=== PATIENT | female | born 1965 | race Caucasian/White ===

== ENCOUNTER → 2024-03-10 10:34 | Outpatient (CLI) | payer BC, SELFPAY ==
--- NOTE | 2024-03-10 10:37 | DI.MRI.S_ITS ---
PROCEDURE: MR HEAD/BRAIN WO CON INDICATIONS: SUDDEN VISUAL LOSS TECHNIQUE: Noncontrast axial T1 spin echo, axial T2 fast spin echo, sagittal and axial FLAIR, coronal T2 fast spin echo, axial gradient echo, axial diffusion and ADC through the brain. COMPARISON: None. FINDINGS: Image quality: Excellent. CSF Spaces: Basal cisterns are patent. No extra-axial fluid collections. Ventricles are normal in size and shape. Brain: No intracranial masses or hemorrhage. Kelly/white matter interface is normal. Brainstem appears normal. Diffusion-weighted images demonstrate no acute infarct. No chronic ischemic insults. Normal intravascular flow voids are present. Scattered foci of periventricular and subcortical white matter hyperintensities are present. Skull and face: Calvarium has normal marrow signal. Orbits appear normal. Sinuses: Sinuses and mastoids are clear. IMPRESSION: Nonspecific scattered hyperintensities. This is suspected to represent early changes of chronic microvascular ischemia. Other etiology such as vasculitis, demyelinating disease or sequela of infection/inflammation or migraine cannot be excluded. Dictated by: Holley Castillo M.D. on 03/10/2024 at 16:59 Approved by: Holley Castillo M.D. on 03/10/2024 at 17:00
--- NOTE | 2024-03-10 10:38 | DI.US.S_ITS ---
PROCEDURE: US CAROTID DOPPLER BI INDICATIONS: SUDDEN VISUAL LOSS TECHNIQUE: Color and pulse Doppler interrogation was performed of both carotid systems, with image documentation and velocity measurements. COMPARISON: None. FINDINGS: Stenosis calculations are based on SRU (S[employer] in [employer]) criteria. Right side: Brachial blood pressure: 126/88 mm Hg. Common carotid artery peak systolic velocity: 35 cm/sec. Internal carotid artery peak systolic velocity: 33 cm/sec. Internal carotid artery end diastolic velocity: 13 cm/sec. External carotid artery peak systolic velocity: 43 cm/sec. ICA/CCA peak systolic ratio: 0.9 . Kelly scale imaging description: Mild plaque Percent internal carotid artery stenosis: Less than 50% . Vertebral artery: Flow direction is antegrade. Left side: Brachial blood pressure: 126/88 mm Hg. Common carotid artery peak systolic velocity: 41 cm/sec. Internal carotid artery peak systolic velocity: 49 cm/sec. Internal carotid artery end diastolic velocity: 20 cm/sec. External carotid artery peak systolic velocity: 55 cm/sec. ICA/CCA peak systolic ratio: 1.2 . Kelly scale imaging description: Minimal plaque Percent internal carotid artery stenosis: Less than 50% stenosis . Vertebral artery: Flow direction is antegrade. IMPRESSION: Less than 50% stenosis bilaterally. Dictated by: Holley Castillo M.D. on 03/10/2024 at 17:00 Approved by: Holley Castillo M.D. on 03/10/2024 at 17:01
== END ==
PROVIDERS: PCP Internal Medicine; Referring Provider Internal Medicine; Visit Provider Internal Medicine
DX: I65.23 Occlusion and stenosis of bilateral carotid arteries (principal); H53.139 Sudden visual loss, unspecified eye
CPT/HCPCS: 70551; 93880